=== PATIENT | male | born 1960 | race African-American/Black ===

== ENCOUNTER 2018-10-10 05:37 | Emergency (ER) | payer SELFPAY ==
[~2018-10-10] VITALS: Ht 170.2 cm; Wt 108.9 kg
[~2018-10-10 05:37] MED LIST: DIPH-530 PO; HYDR200T81 PO; QUET300T2 PO
[2018-10-10 06:32] LABS: BASOPHILS # (AUTO) 0.1 /CMM (0.0-0.2); BASOPHILS % (AUTO) 1.2 % (0.0-2.0); EOSINOPHILS % (AUTO) 0.5 % (0.0-6.0); HEMATOCRIT 39 % (39-51); HEMOGLOBIN 12.9 g/dL (13.5-17.5); LYMPHOCYTES # (AUTO) 1.3 /CMM (0.8-4.8); LYMPHOCYTES % (AUTO) 14.6 % (20.0-44.0); MEAN CORPUSCULAR HGB CONC 33 g/dl (31.0-36.0); MEAN CORPUSCULAR VOLUME 90 fL (80-96); MONOCYTES # (AUTO) 0.9 /CMM (0.1-1.30); NEUTROPHILS # (AUTO) 6.6 /CMM (1.8-8.9); NEUTROPHILS % (AUTO) 73.7 % (43.0-81.0); PLATELET COUNT (AUTO) 261 /CMM (150-450); RED BLOOD CELL COUNT(AUTO) 4.34 MIL/uL (4.5-6.0); WHITE BLOOD COUNT (AUTO) 8.9 K/uL (4.3-11.0)
[2018-10-10 06:42] LABS: CALCIUM, SERUM 9.8 mg/dL (8.5-10.1); CARBON DIOXIDE 32 mmol/L (21-32); CHLORIDE 102 mmol/L (98-107); CREATININE 1.3 mg/dL (0.6-1.3); GLUCOSE 126 mg/dL (74-106); POTASSIUM 3.4 mmol/L (3.5-5.1); SODIUM SERUM 143 mmol/L (136-145); UREA NITROGEN, BLOOD 22 mg/dL (7-18)
[2018-10-10 06:43] LABS: ALCOHOL, BLOOD < 3 mg/dL (0-0)
[2018-10-10 15:41] VITALS: BP 125/60
== END 2018-10-10 15:42 | disposition home or self-care (01) ==
LOC: ER 05:42
DX: F32.9 Major depressive disorder, single episode, unspecified (principal); R45.851 Suicidal ideations; G89.29 Other chronic pain; I10 Essential (primary) hypertension; F20.0 Paranoid schizophrenia; F17.200 Nicotine dependence, unspecified, uncomplicated; Z96.653 Presence of artificial knee joint, bilateral; Z60.2 Problems related to living alone
CPT/HCPCS: 36415; 80048-TC; 80305; 85025-TC; G0480

== ENCOUNTER 2020-03-26 10:10 | Emergency (ER) | payer OTHER ==
[~2020-03-26] VITALS: Ht 167.6 cm; Wt 111.1 kg
--- NOTE | 2020-03-26 10:31 | NUR ---
SECURITY AT BEDSIDE FOR WANDING. BELONGINGS PLACED IN LOCKER.
--- NOTE | 2020-03-26 11:25 | NUR ---
"I"M FEELING SUICIDAL" PLAN IS TO"INJECT MYSELF WITH HEROIN", ADMIT TO USING COCAINE AND MARIJUANA YESTERDAY. PT AAOX4, RR EVEN & UNLABORED. DENIES CP, SOB, DIZZINESS, N/V, WEAKNESS, FEVER AT THIS TIME. PLACED ON DRY WALL NAILER, SR. PT SEEN & EVAL'D BY DR. HADDAD. SITTER AT BS & WILL CONT TO MONITOR.
[2020-03-26 11:34] LABS: BASOPHILS # (AUTO) 0.1 /CMM (0.0-0.2); BASOPHILS % (AUTO) 0.8 % (0.0-2.0); EOSINOPHILS % (AUTO) 2.8 % (0.0-6.0); HEMATOCRIT 37 % (39-51); LYMPHOCYTES # (AUTO) 1.1 /CMM (0.8-4.8); LYMPHOCYTES % (AUTO) 16.8 % (20.0-44.0); MEAN CORPUSCULAR HGB CONC 33 g/dl (31.0-36.0); MEAN CORPUSCULAR VOLUME 88 fL (80-96); MONOCYTES # (AUTO) 0.7 /CMM (0.1-1.30); MONOCYTES % (AUTO) 9.8 % (2.0-12.0); NEUTROPHILS # (AUTO) 4.7 /CMM (1.8-8.9); NEUTROPHILS % (AUTO) 69.8 % (43.0-81.0); PLATELET COUNT (AUTO) 267 /CMM (150-450); RED BLOOD CELL COUNT(AUTO) 4.17 MIL/uL (4.5-6.0); WHITE BLOOD COUNT (AUTO) 6.8 K/uL (4.3-11.0)
[2020-03-26 11:40] LABS: APPEARANCE,URINE Clear (CLEAR); BILIRUBIN,URINE Negative (NEGATIVE); BLOOD, URINE Negative Ery/uL (NEGATIVE); COLOR,URINE Yellow (YELLOW); KETONES,URINE Negative (NEGATIVE); LEUKOCYTE ESTERASE ,URINE Negative (NEGATIVE); NITRITE, URINE Negative (NEGATIVE); PROTEIN,URINE 30 mg/dl (NEGATIVE); UGLUCOSE Negative (NEGATIVE)
[2020-03-26 11:41] LABS: BACTERIA,URINE None seen /HPF (None Seen); RBC,URINE 0-2 /HPF (0-2); WBC,URINE 0-2 /HPF (0-3)
[2020-03-26 11:41] LABS: CALCIUM, SERUM 9.2 mg/dL (8.5-10.1); CARBON DIOXIDE 31 mmol/L (21-32); CHLORIDE 103 mmol/L (98-107); CREATININE 1.2 mg/dL (0.6-1.3); GLUCOSE 94 mg/dL (74-106); POTASSIUM 3.9 mmol/L (3.5-5.1); SODIUM SERUM 140 mmol/L (136-145); UREA NITROGEN, BLOOD 21 mg/dL (7-18)
[2020-03-26 11:42] LABS: SQUAMOUS EPITHELIAL CELL,UR None Seen /HPF (None Seen)
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
[2020-03-26 11:47] LABS: ALANINE AMINOTRANSFERASE 42 U/L (12-78); ALBUMIN 3.7 g/dL (3.4-5.0); ALCOHOL, BLOOD < 3 mg/dL (0-0); ASPARTATE AMINOTRANSFERASE 33 U/L (15-37); BILIRUBIN,DIRECT 0.1 mg/dL (0.0-0.2); BILIRUBIN,TOTAL 0.5 mg/dL (0.2-1.0); SALICYLATE 2.9 mg/dL (2.8-20.0)
[2020-03-26 11:54] LABS: ALKALINE PHOSPHATASE 54 U/L (46-116); TOTAL PROTEIN, SERUM 7.8 g/dL (6.4-8.2)
--- NOTE | 2020-03-26 12:00 | NUR ---
OSIEL GLORIA AT FOR EVAL.
[2020-03-26 12:08] LABS: ACETAMINOPHEN 0 ug/ml (10-30)
--- NOTE | 2020-03-26 13:08 | NUR ---
Patient is resting comfortably in bed with eyes closed. Easily aroused. VSS
--- NOTE | 2020-03-26 14:22 | NUR ---
LESLIE NOTE: Cab Driver contacted Marge, ER Admitting, to follow up on the status of pt's medical coverage and/or the possibility of presumptive MediCal. Per Marge, system is down, and she is unable to access the MediCal website, or proceed with presumptive MediCal coverage for the pt. Marge referred LESLIE to Dali (ext. [phone]) for assistance in helping the pt apply for presumptive MediCal. LESLIE called Dali three times and left a voicemail; unable to reach her. LESLIE will reach out to Dali again and update pt's nurse.l
--- NOTE | 2020-03-26 14:55 | NUR ---
CALLED [facility] [phone] LEFT A MSG.
--- NOTE | 2020-03-26 14:55 | NUR ---
MEDICAL IS DOWN, THEY ARE WORKING ON IT.
--- NOTE | 2020-03-26 15:00 | NUR ---
Hospital Laboratory Technician informed STANISLAW Bay that the system is down for admitting, and they are currently unable to provide presumptive MediCal. Hospital Laboratory Technician asked STANISLAW Bay to proceed with calling crisis to further assess.
--- NOTE | 2020-03-26 15:45 | NUR ---
[facility] CALLED BACK "WILL BE HERE IN AN HOUR OR SO".
--- NOTE | 2020-03-26 20:32 | NUR ---
TRANSFER INFO: PT ACCEPTED AT [facility] ([address] [place] [address]), ROOM 302-A, ACCEPTING DR IS VAN. NUMBER FOR REPORT [phone].
--- NOTE | 2020-03-26 21:57 | NUR ---
S TRANSPORT SET-UP THRU [id number]. ETA [phone], VIA [facility]
--- NOTE | 2020-03-26 22:22 | NUR ---
REPORT GIVEN TO STANISLAW ESCOBAR FROM [facility]. REPORT GIVEN TO [facility] 722 FOR TRANSPORTATION YINKA
[2020-03-26] MEDS ORDERED: CLONIDINE HCL 0.1 MG TABLET ONE (22:29)
[2020-03-26] MEDS ORDERED: CLONIDINE HCL 0.1 MG TABLET PO ONE (22:30)
[2020-03-26 22:36] VITALS: BP 157/100
== END 2020-03-26 22:38 | disposition short-term general hospital (02) ==
LOC: ER 10:10
DX: F32.9 Major depressive disorder, single episode, unspecified (principal); R45.850 Homicidal ideations; I10 Essential (primary) hypertension; M32.9 Systemic lupus erythematosus, unspecified; F17.210 Nicotine dependence, cigarettes, uncomplicated; Z79.899 Other long term (current) drug therapy
CPT/HCPCS: 36415; 80048; 80076; 80305; 80307; 80329; 81001; 85025; 99285; G0480; 81000-TC

== ENCOUNTER 2020-05-11 20:02 | Emergency (ER) | payer OTHER ==
[~2020-05-11] VITALS: Ht 167.6 cm; Wt 108.9 kg
[2020-05-11] MEDS ORDERED: OLANZAPINE 5 MG TABLET PO ONE (20:30)
[2020-05-11] MEDS ORDERED: OLANZAPINE 5 MG TABLET ONE (20:35)
--- NOTE | 2020-05-11 20:36 | NUR ---
PATIENT CAME TO [facility] C/O SIPLANS TO TAKE FENTANYL. PATIENT IS AGITATED, STATES, "I HAVE BEEN ON MY FEET THE WHOLE DAY". PATIENT IS TAKEN TO BED 14, CHANGED INTO A GOWN. PERSONAL BELONGINGS REMOVED AND PLACED INTO A LOCKED LOCKER. PATIENT IS BREATHING EVENLY AND UNLABORED ON ROOM AIR. SITTER AT BEDSIDE.
--- NOTE | 2020-05-11 20:39 | NUR ---
PATIENT'S URINE COLLECTED AND SENT TO [facility].
--- NOTE | 2020-05-11 20:40 | NUR ---
CALLED NURSING SUP FOR LOTRIMIN, DRUG NOT AVAILABLE IN ER PYXIS
[2020-05-11 20:43] LABS: BASOPHILS # (AUTO) 0.1 /CMM (0.0-0.2); BASOPHILS % (AUTO) 0.6 % (0.0-2.0); EOSINOPHILS % (AUTO) 2.1 % (0.0-6.0); HEMATOCRIT 36 % (39-51); HEMOGLOBIN 11.7 g/dL (13.5-17.5); LYMPHOCYTES # (AUTO) 1.5 /CMM (0.8-4.8); LYMPHOCYTES % (AUTO) 18.9 % (20.0-44.0); MEAN CORPUSCULAR HGB CONC 33 g/dl (31.0-36.0); MEAN CORPUSCULAR VOLUME 89 fL (80-96); MONOCYTES % (AUTO) 12.6 % (2.0-12.0); NEUTROPHILS # (AUTO) 5.3 /CMM (1.8-8.9); NEUTROPHILS % (AUTO) 65.8 % (43.0-81.0); PLATELET COUNT (AUTO) 263 /CMM (150-450); RED BLOOD CELL COUNT(AUTO) 4.06 MIL/uL (4.5-6.0); WHITE BLOOD COUNT (AUTO) 8.1 K/uL (4.3-11.0)
[2020-05-11 20:54] LABS: APPEARANCE,URINE Clear (CLEAR); BILIRUBIN,URINE SMALL (NEGATIVE); BLOOD, URINE Negative Ery/uL (NEGATIVE); COLOR,URINE Yellow (YELLOW); KETONES,URINE Trace (NEGATIVE); LEUKOCYTE ESTERASE ,URINE Negative (NEGATIVE); NITRITE, URINE Negative (NEGATIVE); PH,URINE 5.5 (5.0-8.0); PROTEIN,URINE Trace mg/dl (NEGATIVE); UGLUCOSE Negative (NEGATIVE); UROBILINOGEN,URINE 0.2 EU/dL (0.2)
[2020-05-11 21:00] LABS: ALANINE AMINOTRANSFERASE 42 U/L (12-78); ALBUMIN 4.1 g/dL (3.4-5.0); ALCOHOL, BLOOD < 3 mg/dL (0-0); ALKALINE PHOSPHATASE 61 U/L (46-116); ASPARTATE AMINOTRANSFERASE 40 U/L (15-37); BILIRUBIN,DIRECT 0.2 mg/dL (0.0-0.2); BILIRUBIN,TOTAL 0.6 mg/dL (0.2-1.0); CALCIUM, SERUM 9.7 mg/dL (8.5-10.1); CARBON DIOXIDE 27 mmol/L (21-32); CHLORIDE 101 mmol/L (98-107); CREATININE 1.3 mg/dL (0.6-1.3); GLUCOSE 88 mg/dL (74-106); POTASSIUM 3.5 mmol/L (3.5-5.1); SALICYLATE 5.2 mg/dL (2.8-20.0); SODIUM SERUM 135 mmol/L (136-145); TOTAL PROTEIN, SERUM 8.5 g/dL (6.4-8.2); UREA NITROGEN, BLOOD 25 mg/dL (7-18)
[2020-05-11] MEDS ORDERED: CLOTRIMAZOLE 1% 15 GM TUBE TP SCH (21:00)
[2020-05-11 21:03] LABS: BACTERIA,URINE Few /HPF (None Seen); RBC,URINE 0-2 /HPF (0-2); SQUAMOUS EPITHELIAL CELL,UR Few /HPF (None Seen); WBC,URINE 0-2 /HPF (0-3)
[2020-05-11 21:04] LABS: ACETAMINOPHEN 0 ug/ml (10-30)
--- NOTE | 2020-05-11 22:18 | NUR ---
CLINICAL INFORMATION FAXED TO [facility]
--- NOTE | 2020-05-11 23:08 | NUR ---
PER SHAUNA FROM [facility], COVID TEST REQUIRED FOR PLACEMENT D/T PREVIOUS POSITIVE COVID RESULTS
--- NOTE | 2020-05-11 23:15 | NUR ---
Rylan greene in [facility] - 05/11/20 at 2316 by JENNIFER PER [facility], COVID TEST REQUIRED FOR PLACEMENT. AWARE
--- NOTE | 2020-05-11 23:27 | NUR ---
PT RESTING COMFORTABLY IN BED. VSS. NO ACUTE DISTRESS NOTED. SITTER AT BEDSIDE FOR SAFETY
--- NOTE | 2020-05-12 00:38 | NUR ---
TRANSFER INFORMATION: [facility]ED TO [facility] ACCEPTING MD: DR. GONSALVES/DR. MAYES NUMBER FOR REPORT: [phone] UNIT 2
--- NOTE | 2020-05-12 00:40 | NUR ---
CALLED CALL THE CAR FOR TRANSPORTATION. RESERVATION #[id number]. WILL CALL BACK WITH FELI
--- NOTE | 2020-05-12 00:44 | NUR ---
[facility] ETA 30MIN
--- NOTE | 2020-05-12 00:58 | NUR ---
REPORT GIVEN TO STANISLAW BYRNE FROM [facility] FOR [facility]
--- NOTE | 2020-05-12 01:06 | NUR ---
REPORT GIVEN TO EMS. PT STABLE FOR TRANSFER.
[2020-05-12 01:12] VITALS: BP 127/74
--- NOTE | 2020-05-12 01:13 | NUR ---
PT TRANSFERRED TO [facility] IN STABLE CONDITION
== END 2020-05-12 01:16 ==
LOC: ER 20:02
DX: R45.851 Suicidal ideations (principal); F14.10 Cocaine abuse, uncomplicated; B35.3 Tinea pedis; B35.1 Tinea unguium; E66.9 Obesity, unspecified; Z68.38 Body mass index [BMI] 38.0-38.9, adult; Z59.0 Homelessness; I10 Essential (primary) hypertension; Z79.01 Long term (current) use of anticoagulants; D64.9 Anemia, unspecified; F12.90 Cannabis use, unspecified, uncomplicated; Z86.19 Personal history of other infectious and parasitic diseases; M25.562 Pain in left knee; M25.561 Pain in right knee; M32.9 Systemic lupus erythematosus, unspecified; F17.210 Nicotine dependence, cigarettes, uncomplicated
CPT/HCPCS: 36415; 80048; 80076; 80305; 80307; 80329; 81001; 85025; 87426; 99285; 99406; G0480; 81000-TC

== ENCOUNTER 2020-05-25 08:27 | Emergency (ER) | payer OTHER ==
[~2020-05-25] VITALS: Ht 167.6 cm; Wt 90.7 kg
--- NOTE | 2020-05-25 08:27 | NUR ---
PT BIB SELF C/O SI "I WANT TO JUMP IN FRONT OF THE TRAIN" PT IS AAOX4, NOT IN RESPIRATORY DISTRESS, V/S STABLE, KEPT RESTED AND COMFORTABLE. WILL CONTINUE TO MONITOR.
--- NOTE | 2020-05-25 08:36 | NUR ---
URINE SPECIMEN COLLECTED AND SENT TO LAB.
--- NOTE | 2020-05-25 08:37 | NUR ---
CALLED SECURITY FOR WANDING.
--- NOTE | 2020-05-25 08:38 | NUR ---
SEEN AND EXAMINED BY .
--- NOTE | 2020-05-25 08:46 | NUR ---
FOOD TRAY PROVIDED.
[2020-05-25 09:05] LABS: BASOPHILS % (AUTO) 0.6 % (0.0-2.0); HEMATOCRIT 36 % (39-51); HEMOGLOBIN 11.6 g/dL (13.5-17.5); LYMPHOCYTES # (AUTO) 1.3 /CMM (0.8-4.8); LYMPHOCYTES % (AUTO) 16.4 % (20.0-44.0); MEAN CORPUSCULAR HGB CONC 33 g/dl (31.0-36.0); MEAN CORPUSCULAR VOLUME 89 fL (80-96); MONOCYTES # (AUTO) 0.8 /CMM (0.1-1.30); MONOCYTES % (AUTO) 9.5 % (2.0-12.0); NEUTROPHILS # (AUTO) 5.8 /CMM (1.8-8.9); NEUTROPHILS % (AUTO) 71.5 % (43.0-81.0); PLATELET COUNT (AUTO) 264 /CMM (150-450); RED BLOOD CELL COUNT(AUTO) 3.99 MIL/uL (4.5-6.0); WHITE BLOOD COUNT (AUTO) 8.1 K/uL (4.3-11.0)
[2020-05-25 09:08] LABS: APPEARANCE,URINE CLEAR (CLEAR); BILIRUBIN,URINE NEGATIVE (NEGATIVE); BLOOD, URINE NEGATIVE Ery/uL (NEGATIVE); COLOR,URINE YELLOW (YELLOW); KETONES,URINE NEGATIVE (NEGATIVE); LEUKOCYTE ESTERASE ,URINE NEGATIVE (NEGATIVE); NITRITE, URINE NEGATIVE (NEGATIVE); PROTEIN,URINE TRACE mg/dl (NEGATIVE); UGLUCOSE NEGATIVE (NEGATIVE)
[2020-05-25 09:18] LABS: CALCIUM, SERUM 8.5 mg/dL (8.5-10.1); CARBON DIOXIDE 26 mmol/L (21-32); CHLORIDE 102 mmol/L (98-107); CREATININE 1.2 mg/dL (0.6-1.3); GLUCOSE 95 mg/dL (74-106); POTASSIUM 3.5 mmol/L (3.5-5.1); SODIUM SERUM 135 mmol/L (136-145); UREA NITROGEN, BLOOD 18 mg/dL (7-18)
[2020-05-25 09:18] LABS: BACTERIA,URINE Rare /HPF (None Seen); RBC,URINE 0-2 /HPF (0-2); SQUAMOUS EPITHELIAL CELL,UR Rare /HPF (None Seen); WBC,URINE 0-2 /HPF (0-3)
[2020-05-25 09:23] LABS: ALANINE AMINOTRANSFERASE 30 U/L (12-78); ALBUMIN 3.6 g/dL (3.4-5.0); ALCOHOL, BLOOD < 3 mg/dL (0-0); ALKALINE PHOSPHATASE 64 U/L (46-116); ASPARTATE AMINOTRANSFERASE 29 U/L (15-37); BILIRUBIN,DIRECT 0.2 mg/dL (0.0-0.2); BILIRUBIN,TOTAL 0.7 mg/dL (0.2-1.0); SALICYLATE 4.4 mg/dL (2.8-20.0); TOTAL PROTEIN, SERUM 9.9 g/dL (6.4-8.2)
[2020-05-25 09:24] LABS: ACETAMINOPHEN < 2 ug/ml (10-30)
--- NOTE | 2020-05-25 10:40 | NUR ---
CALLED [facility] [phone] STILL NO BEDS. PLEASE CHECK BACK AFTER 2352
--- NOTE | 2020-05-25 12:53 | NUR ---
SPOKED TO [facility]. CLINICALS AND FACE SHEET RECEIVED.
--- NOTE | 2020-05-25 14:45 | NUR ---
PT ASLEEP ON BED EASILY AROUSABLE, NOT IN RESPIRATORY DISTRESS, V/S STABLE, KEPT RESTED AND COMFORTABLE. AWAITING BEDS FROM [facility].
--- NOTE | 2020-05-25 16:05 | NUR ---
SPOKED TO ANAYA OF [facility]. STILL NO BEDS AVAILABLE. WILL CALL BACK FOR UPDATE.
--- NOTE | 2020-05-25 17:16 | NUR ---
PT IS ACCEPTED AT [facility] BY . ROOM # 211-C # FOR REPORT: [phone] EXT [phone]
--- NOTE | 2020-05-25 17:22 | NUR ---
CALLED [id number] [phone] OPTION 2 WILL CALL US BACK WHEN TRANSPORT HAS BEEN ARRANGED REF # [id number]
--- NOTE | 2020-05-25 17:22 | NUR ---
REPORT GIVEN TO ST[facility]ISLAW BLISS OF [facility] FOR [facility].
--- NOTE | 2020-05-25 18:48 | NUR ---
REPORT GIVEN TO REFRIGERATION ENGINE OPERATOR, PATIENT A/OX4, AMBULATORY, NO DISTRESS NOTED. BELONGINGS GIVEN BACK TO PATIENT.
--- NOTE | 2020-05-25 18:50 | NUR ---
PATIENT TRANSFERRED TO [facility]. IN NO DISTRESS NOTED.
[2020-05-25 18:51] VITALS: BP 136/77
== END 2020-05-25 18:52 ==
LOC: ER 08:33
DX: R45.851 Suicidal ideations (principal); F17.210 Nicotine dependence, cigarettes, uncomplicated; I10 Essential (primary) hypertension; Z60.2 Problems related to living alone; Z79.899 Other long term (current) drug therapy
CPT/HCPCS: 36415; 80048; 80076; 80305; 80307; 80329; 81001; 85025; 99285; G0480; 81000-TC

== ENCOUNTER 2020-06-08 09:32 | Emergency (ER) | payer OTHER ==
[~2020-06-08] VITALS: Ht 167.6 cm; Wt 97.1 kg
--- NOTE | 2020-06-08 09:41 | NUR ---
CALLED IN ED WAITING ROOM. NO RESPONSE.
--- NOTE | 2020-06-08 09:59 | NUR ---
Patient awake alert follows command @ this time non distress security called for belongings and safety siiter @ bedside
--- NOTE | 2020-06-08 10:27 | NUR ---
Urine send for tox .
[2020-06-08 10:55] LABS: APPEARANCE,URINE CLEAR (CLEAR); BILIRUBIN,URINE NEGATIVE (NEGATIVE); BLOOD, URINE LARGE Ery/uL (NEGATIVE); COLOR,URINE YELLOW (YELLOW); KETONES,URINE NEGATIVE (NEGATIVE); LEUKOCYTE ESTERASE ,URINE NEGATIVE (NEGATIVE); NITRITE, URINE NEGATIVE (NEGATIVE); PROTEIN,URINE TRACE mg/dl (NEGATIVE); UGLUCOSE NEGATIVE (NEGATIVE); UROBILINOGEN,URINE 0.2 EU/dL (0.2)
[2020-06-08 10:55] LABS: BASOPHILS % (AUTO) 0.3 % (0.0-2.0); EOSINOPHILS % (AUTO) 0.8 % (0.0-6.0); HEMATOCRIT 35 % (39-51); HEMOGLOBIN 11.3 g/dL (13.5-17.5); LYMPHOCYTES # (AUTO) 1.3 /CMM (0.8-4.8); LYMPHOCYTES % (AUTO) 16.7 % (20.0-44.0); MEAN CORPUSCULAR HGB CONC 32 g/dl (31.0-36.0); MEAN CORPUSCULAR VOLUME 89 fL (80-96); MONOCYTES # (AUTO) 0.9 /CMM (0.1-1.30); MONOCYTES % (AUTO) 11.4 % (2.0-12.0); NEUTROPHILS # (AUTO) 5.5 /CMM (1.8-8.9); NEUTROPHILS % (AUTO) 70.8 % (43.0-81.0); PLATELET COUNT (AUTO) 271 /CMM (150-450); RED BLOOD CELL COUNT(AUTO) 3.93 MIL/uL (4.5-6.0); WHITE BLOOD COUNT (AUTO) 7.8 K/uL (4.3-11.0)
[2020-06-08 11:14] LABS: CALCIUM, SERUM 8.3 mg/dL (8.5-10.1); CARBON DIOXIDE 27 mmol/L (21-32); CHLORIDE 101 mmol/L (98-107); CREATININE 1.3 mg/dL (0.6-1.3); GLUCOSE 78 mg/dL (74-106); POTASSIUM 3.5 mmol/L (3.5-5.1); SODIUM SERUM 136 mmol/L (136-145); UREA NITROGEN, BLOOD 17 mg/dL (7-18)
[2020-06-08 11:20] LABS: ALANINE AMINOTRANSFERASE 34 U/L (12-78); ALBUMIN 3.6 g/dL (3.4-5.0); ALCOHOL, BLOOD < 3 mg/dL (0-0); ALKALINE PHOSPHATASE 58 U/L (46-116); ASPARTATE AMINOTRANSFERASE 26 U/L (15-37); BILIRUBIN,DIRECT 0.2 mg/dL (0.0-0.2); BILIRUBIN,TOTAL 0.5 mg/dL (0.2-1.0); SALICYLATE 4.2 mg/dL (2.8-20.0); TOTAL PROTEIN, SERUM 7.8 g/dL (6.4-8.2)
[2020-06-08 11:23] LABS: ACETAMINOPHEN < 2 ug/ml (10-30)
[2020-06-08 12:15] LABS: RBC,URINE 51-80 /HPF (0-2)
[2020-06-08 12:16] LABS: BACTERIA,URINE Many /HPF (None Seen); SQUAMOUS EPITHELIAL CELL,UR Few /HPF (None Seen)
--- NOTE | 2020-06-08 12:55 | NUR ---
Patient asleep but arousable non distress remain calm he follows command ,no agitation check room for safety ,safety tray
--- NOTE | 2020-06-08 13:45 | NUR ---
facesheet and clinicals faxed to intake toin
--- NOTE | 2020-06-08 15:27 | NUR ---
facesheet and clinicals faxed to [facility].
--- NOTE | 2020-06-08 15:45 | NUR ---
pt sleeping in bed. easily arousable. on monitor w/ stable vitals. sitter at bedside.
--- NOTE | 2020-06-08 16:10 | NUR ---
provided w meal tray.
--- NOTE | 2020-06-08 17:34 | NUR ---
follow up w/ [facility]. spoke w/ lisa. no beds available at this time.
--- NOTE | 2020-06-08 20:09 | NUR ---
SPOKE WITH KALLI FROM [facility], NO BEDS AVAILABLE AT THIS TIME
--- NOTE | 2020-06-09 01:25 | NUR ---
SPOKE WITH CJ FROM [facility], STILL NO BEDS AVAILABALE AT THIS TIME.
--- NOTE | 2020-06-09 02:15 | NUR ---
spoke to [facility] intake, requesting a covid swab prior to admission regardless pt has no symptoms for covid.
--- NOTE | 2020-06-09 02:25 | NUR ---
COVID SWAB COLLECTED AND SENT TO THE LAB.
--- NOTE | 2020-06-09 02:47 | NUR ---
covid test result: negative
--- NOTE | 2020-06-09 03:49 | NUR ---
TRANSFER INFORMATION: PT ACCEPTED TO [facility] ACCEPTING MD: DR. GONSALVES NUMBER FOR REPORT: [phone] EXT [phone]
--- NOTE | 2020-06-09 03:50 | NUR ---
CALLED CALL THE CAR FOR TRANSPORTATION,WILL CALL BACK WITH ETA. RESERVATION NUMBER:[id number]
--- NOTE | 2020-06-09 04:20 | NUR ---
pt resting at this time. no acute distress noted.
--- NOTE | 2020-06-09 04:58 | NUR ---
CALLED CALL THE CAR, STILL NO ETA FOR AN AMBULANCE AT THIS TIME
--- NOTE | 2020-06-09 05:07 | NUR ---
REC'D A CALL FROM ALL AT CALL THE CAR WITH ETA 0600 TO 0630 WITH [facility] TO [facility]
--- NOTE | 2020-06-09 05:13 | NUR ---
[facility] ETA 30 MINUTES
--- NOTE | 2020-06-09 05:22 | NUR ---
NOTED HYPERTENSION. MD AWARE. PT STATES HE TAKES LISINIPRIL 10MG, PER VERBAL MD ORDER WILL MEDICATE PATIENT
[2020-06-09] MEDS ORDERED: LISINOPRIL (10MG) 10 MG TABLET ONE (05:27)
[2020-06-09 05:31] VITALS: BP 161/92
--- NOTE | 2020-06-09 06:08 | NUR ---
REPORT GIVEN TO [facility] AND TO STANISLAW TITUS FROM [facility] FOR [facility]. PT TRANSFERRED TO [facility] IN STABLE CONDITION
[2020-06-09] MEDS ORDERED: LISINOPRIL (10MG) 10 MG TABLET PO SCH (09:00)
== END 2020-06-09 06:14 ==
LOC: ER 09:36
DX: F32.9 Major depressive disorder, single episode, unspecified (principal); F19.10 Other psychoactive substance abuse, uncomplicated; R45.851 Suicidal ideations; F17.210 Nicotine dependence, cigarettes, uncomplicated; M32.9 Systemic lupus erythematosus, unspecified; G89.29 Other chronic pain; M25.562 Pain in left knee; M25.561 Pain in right knee; I10 Essential (primary) hypertension; Z20.828 Contact with and (suspected) exposure to other viral communicable diseases
CPT/HCPCS: 36415; 80048; 80076; 80305; 80307; 80329; 81001; 85025; 87086; 87426; 99285; C9803; G0480; 81000-TC

== ENCOUNTER 2020-07-13 10:28 | Emergency (ER) | payer OTHER ==
[~2020-07-13] VITALS: Ht 167.6 cm; Wt 90.7 kg
--- NOTE | 2020-07-13 10:28 | NUR ---
PT BIB SELF C/O SI "I WANT TO OD ON PILLS" PT IS AAOX4, NOT IN RESPIRATORY DISTRESS, V/S STABLE, KEPT RESTED AND COMFORTABLE. WILL CONTINUE TO MONITOR.
--- NOTE | 2020-07-13 10:50 | NUR ---
URINE SPECIMEN COLLECTED AND SENT TO LAB.
--- NOTE | 2020-07-13 10:54 | NUR ---
SEEN AND EXAMINED BY .
--- NOTE | 2020-07-13 11:12 | NUR ---
ER PHLEB AT BEDSIDE FOR BLOOD DRAW
[2020-07-13 11:21] LABS: BASOPHILS % (AUTO) 0.5 % (0.0-2.0); EOSINOPHILS % (AUTO) 1.5 % (0.0-6.0); HEMATOCRIT 41 % (39-51); HEMOGLOBIN 13.4 g/dL (13.5-17.5); LYMPHOCYTES # (AUTO) 1.1 /CMM (0.8-4.8); LYMPHOCYTES % (AUTO) 15.7 % (20.0-44.0); MEAN CORPUSCULAR HGB CONC 33 g/dl (31.0-36.0); MEAN CORPUSCULAR VOLUME 89 fL (80-96); NEUTROPHILS # (AUTO) 4.9 /CMM (1.8-8.9); NEUTROPHILS % (AUTO) 68.3 % (43.0-81.0); PLATELET COUNT (AUTO) 245 /CMM (150-450); RED BLOOD CELL COUNT(AUTO) 4.55 MIL/uL (4.5-6.0); WHITE BLOOD COUNT (AUTO) 7.1 K/uL (4.3-11.0)
[2020-07-13 11:23] LABS: APPEARANCE,URINE Clear (CLEAR); BILIRUBIN,URINE SMALL (NEGATIVE); BLOOD, URINE Trace-intact Ery/uL (NEGATIVE); COLOR,URINE Yellow (YELLOW); KETONES,URINE Negative (NEGATIVE); LEUKOCYTE ESTERASE ,URINE Negative (NEGATIVE); NITRITE, URINE Negative (NEGATIVE); PH,URINE 5.5 (5.0-8.0); PROTEIN,URINE 30 mg/dl (NEGATIVE); UGLUCOSE Negative (NEGATIVE); UROBILINOGEN,URINE 0.2 EU/dL (0.2)
[2020-07-13 11:26] LABS: BACTERIA,URINE Rare /HPF (None Seen); RBC,URINE 0-2 /HPF (0-2); SQUAMOUS EPITHELIAL CELL,UR Few /HPF (None Seen); WBC,URINE 0-2 /HPF (0-3)
[2020-07-13 11:29] LABS: CALCIUM, SERUM 9.3 mg/dL (8.5-10.1); CARBON DIOXIDE 26 mmol/L (21-32); CHLORIDE 99 mmol/L (98-107); CREATININE 2.6 mg/dL (0.6-1.3); GLUCOSE 87 mg/dL (74-106); POTASSIUM 4.1 mmol/L (3.5-5.1); SODIUM SERUM 134 mmol/L (136-145); UREA NITROGEN, BLOOD 41 mg/dL (7-18)
[2020-07-13 11:39] LABS: ALANINE AMINOTRANSFERASE 33 U/L (12-78); ALKALINE PHOSPHATASE 65 U/L (46-116); ASPARTATE AMINOTRANSFERASE 46 U/L (15-37); BILIRUBIN,DIRECT 0.2 mg/dL (0.0-0.2); BILIRUBIN,TOTAL 0.6 mg/dL (0.2-1.0); SALICYLATE 4.6 mg/dL (2.8-20.0); TOTAL PROTEIN, SERUM 9.1 g/dL (6.4-8.2)
[2020-07-13 11:51] LABS: ACETAMINOPHEN 0 ug/ml (10-30); ALCOHOL, BLOOD < 3 mg/dL (0-0)
--- NOTE | 2020-07-13 13:25 | NUR ---
COVID SPECIMEN OBTAINED AND SENT TO LAB.
--- NOTE | 2020-07-13 19:10 | NUR ---
ASSUMED CARE FOR THIS PATIENT.
--- NOTE | 2020-07-13 19:20 | NUR ---
PT SEEN WANDERING AROUND. PT REORIENTED TO ROOM.
--- NOTE | 2020-07-13 19:40 | NUR ---
PT PROVIDED W/ FOOD AND BEVERAGE
[2020-07-13 23:07] VITALS: BP 131/82
--- NOTE | 2020-07-14 00:03 | NUR ---
PT ACCEPTED TO [facility] BY DR GONSALVES. ROOM P6. # FOR REPORT [phone]
--- NOTE | 2020-07-14 00:10 | NUR ---
MARIS[facility] CALL THE CAR CALLED FOR TRANSPORT. #[phone]. PENDING ETA
--- NOTE | 2020-07-14 00:33 | NUR ---
[facility] ETA 1 HR.
--- NOTE | 2020-07-14 01:34 | NUR ---
REPORT GIVEN TO TRANSPORT TEAM FOR [facility]A. AND TRANSFERRING RESPONSIBILTIES.
--- NOTE | 2020-07-14 01:36 | NUR ---
REPORT GIVEN TO STANISLAW [facility] FOR [facility]
== END 2020-07-14 01:52 ==
LOC: ER 10:32
DX: R45.851 Suicidal ideations (principal); F20.0 Paranoid schizophrenia; M32.9 Systemic lupus erythematosus, unspecified; F17.210 Nicotine dependence, cigarettes, uncomplicated; F19.10 Other psychoactive substance abuse, uncomplicated; Z20.828 Contact with and (suspected) exposure to other viral communicable diseases
CPT/HCPCS: 36415; 80048; 80076; 80305; 80307; 80329; 81001; 85025; 87426; 99285; C9803; G0480; 81000-TC

== ENCOUNTER 2020-08-08 03:15 | Emergency (ER) | payer OTHER ==
[~2020-08-08] VITALS: Ht 167.6 cm; Wt 108.9 kg
[2020-08-08] MEDS ORDERED: CLONIDINE HCL 0.1 MG TABLET PO ONE (04:00)
--- NOTE | 2020-08-08 04:01 | NUR ---
BIBSELF C/O SUICIDAL IDEATION WITH PLAN TO OVERDOSE ON FENTANYL. PT PLACED IN BED 12 ON MONITOR AND PULSE OX. PT PLACED IN GOWN, BELONGINGS IN LOCKER. SITTER AT BEDSIDE.
[2020-08-08] MEDS ORDERED: CLONIDINE HCL 0.1 MG TABLET ONE (04:04)
--- NOTE | 2020-08-08 04:09 | NUR ---
TUTORING ASSISTANT AT BEDSIDE
[2020-08-08 04:15] LABS: BASOPHILS % (AUTO) 0.2 % (0.0-2.0); EOSINOPHILS % (AUTO) 2.1 % (0.0-6.0); HEMATOCRIT 37 % (39-51); LYMPHOCYTES # (AUTO) 1.1 /CMM (0.8-4.8); MEAN CORPUSCULAR HGB CONC 33 g/dl (31.0-36.0); MEAN CORPUSCULAR VOLUME 89 fL (80-96); MONOCYTES # (AUTO) 0.5 /CMM (0.1-1.30); MONOCYTES % (AUTO) 8.8 % (2.0-12.0); NEUTROPHILS # (AUTO) 4.3 /CMM (1.8-8.9); NEUTROPHILS % (AUTO) 70.9 % (43.0-81.0); PLATELET COUNT (AUTO) 255 /CMM (150-450); RED BLOOD CELL COUNT(AUTO) 4.17 MIL/uL (4.5-6.0)
--- NOTE | 2020-08-08 04:18 | NUR ---
URINE COLLECTED AND SENT TO LAB
[2020-08-08 04:22] LABS: CALCIUM, SERUM 9.4 mg/dL (8.5-10.1); CARBON DIOXIDE 33 mmol/L (21-32); CHLORIDE 102 mmol/L (98-107); CREATININE 1.1 mg/dL (0.6-1.3); GLUCOSE 95 mg/dL (74-106); POTASSIUM 3.4 mmol/L (3.5-5.1); SODIUM SERUM 141 mmol/L (136-145); UREA NITROGEN, BLOOD 11 mg/dL (7-18)
[2020-08-08 04:22] LABS: APPEARANCE,URINE Clear (CLEAR); BILIRUBIN,URINE Negative (NEGATIVE); BLOOD, URINE Negative Ery/uL (NEGATIVE); COLOR,URINE Yellow (YELLOW); LEUKOCYTE ESTERASE ,URINE Negative (NEGATIVE); NITRITE, URINE Negative (NEGATIVE); PH,URINE 6.5 (5.0-8.0); PROTEIN,URINE 30 mg/dl (NEGATIVE); UGLUCOSE Negative (NEGATIVE)
[2020-08-08 04:28] LABS: ALANINE AMINOTRANSFERASE 20 U/L (12-78); ALBUMIN 3.6 g/dL (3.4-5.0); ALCOHOL, BLOOD < 3 mg/dL (0-0); ALKALINE PHOSPHATASE 68 U/L (46-116); ASPARTATE AMINOTRANSFERASE 19 U/L (15-37); BILIRUBIN,DIRECT 0.1 mg/dL (0.0-0.2); BILIRUBIN,TOTAL 0.4 mg/dL (0.2-1.0); TOTAL PROTEIN, SERUM 8.1 g/dL (6.4-8.2)
[2020-08-08 04:29] LABS: ACETAMINOPHEN < 2 ug/ml (10-30)
[2020-08-08 04:46] LABS: RBC,URINE 0-2 /HPF (0-2)
[2020-08-08 04:47] LABS: BACTERIA,URINE Many /HPF (None Seen); SQUAMOUS EPITHELIAL CELL,UR Few /HPF (None Seen)
--- NOTE | 2020-08-08 05:02 | NUR ---
COVID SWABBED, SENT TO LAB
--- NOTE | 2020-08-08 05:27 | NUR ---
Call from lab. Rapid covid negative.
--- NOTE | 2020-08-08 06:49 | NUR ---
Facesheet and clinicals faxed to [facility].
--- NOTE | 2020-08-08 08:18 | NUR ---
ACCEPTED AT [facility] UNDER DR GONSALVES REPORT CALLED TO [facility]. AWAITING TRANSPORT.
--- NOTE | 2020-08-08 08:44 | NUR ---
[facility]2 MARCUS EDMOND WILL INFORM US RESERVATION #[id number]
--- NOTE | 2020-08-08 10:16 | NUR ---
TRANSFERRED TO [facility] IN STABLE CONDITION.
[2020-08-08 10:18] VITALS: BP 135/87
== END 2020-08-08 10:20 ==
LOC: ER 03:15
DX: R45.851 Suicidal ideations (principal); F20.0 Paranoid schizophrenia; Z91.14 Patient's other noncompliance with medication regimen; I10 Essential (primary) hypertension; M32.9 Systemic lupus erythematosus, unspecified; F17.210 Nicotine dependence, cigarettes, uncomplicated; F19.10 Other psychoactive substance abuse, uncomplicated; G89.29 Other chronic pain; M25.562 Pain in left knee; M25.561 Pain in right knee
CPT/HCPCS: 36415; 80048; 80076; 80299; 80307; 80320; 81001; 85025; 87077; 87086; 87186; 87426; 99285; C9803; 81000-TC; G0480

== ENCOUNTER 2020-10-04 19:29 | Emergency (ER) | payer OTHER ==
[~2020-10-04] VITALS: Ht 167.6 cm; Wt 90.7 kg
--- NOTE | 2020-10-04 19:46 | NUR ---
PT AAOX4. AMBULATORY WITH STEADY GAIT. BIBSELF C/O SI WITH PLAN TO JUMP IN FRONT OF A MOVING TRAIN. DENIES HI. REQUESTING VOLUNTARY ADMISSION TO [facility].
--- NOTE | 2020-10-04 20:10 | NUR ---
URINE COLLECTED, SENT TO LAB.
--- NOTE | 2020-10-04 20:30 | NUR ---
KANDISID SWABBED, SENT TO LAB.
--- NOTE | 2020-10-04 20:48 | NUR ---
MEAT AND SEAFOOD CLERK AT BEDSIDE FOR LABS.
[2020-10-04 21:32] LABS: BASOPHILS % (AUTO) 0.4 % (0.0-2.0); HEMATOCRIT 34 % (39-51); LYMPHOCYTES # (AUTO) 1.6 /CMM (0.8-4.8); LYMPHOCYTES % (AUTO) 26.1 % (20.0-44.0); MEAN CORPUSCULAR HGB CONC 33 g/dl (31.0-36.0); MEAN CORPUSCULAR VOLUME 88 fL (80-96); MONOCYTES # (AUTO) 0.8 /CMM (0.1-1.30); MONOCYTES % (AUTO) 12.1 % (2.0-12.0); NEUTROPHILS # (AUTO) 3.6 /CMM (1.8-8.9); NEUTROPHILS % (AUTO) 58.4 % (43.0-81.0); PLATELET COUNT (AUTO) 224 /CMM (150-450); RED BLOOD CELL COUNT(AUTO) 3.79 MIL/uL (4.5-6.0); WHITE BLOOD COUNT (AUTO) 6.2 K/uL (4.3-11.0)
[2020-10-04 21:37] LABS: BILIRUBIN,URINE NEGATIVE (NEGATIVE); COLOR,URINE YELLOW (YELLOW); LEUKOCYTE ESTERASE ,URINE NEGATIVE (NEGATIVE); NITRITE, URINE NEGATIVE (NEGATIVE); PROTEIN,URINE NEGATIVE (NEGATIVE); UGLUCOSE NEGATIVE (NEGATIVE)
[2020-10-04 21:48] LABS: BACTERIA,URINE None seen /HPF (None Seen); RBC,URINE 0-2 /HPF (0-2); WBC,URINE 0-2 /HPF (0-3)
[2020-10-04 21:49] LABS: CALCIUM, SERUM 9.1 mg/dL (8.5-10.1); CARBON DIOXIDE 31 mmol/L (21-32); CHLORIDE 103 mmol/L (98-107); CREATININE 1.3 mg/dL (0.6-1.3); GLUCOSE 97 mg/dL (74-106); POTASSIUM 3.7 mmol/L (3.5-5.1); SODIUM SERUM 140 mmol/L (136-145); UREA NITROGEN, BLOOD 20 mg/dL (7-18)
[2020-10-04 21:58] LABS: ALANINE AMINOTRANSFERASE 27 U/L (12-78); ALBUMIN 3.5 g/dL (3.4-5.0); ALCOHOL, BLOOD < 3 mg/dL (0-0); ALKALINE PHOSPHATASE 66 U/L (46-116); ASPARTATE AMINOTRANSFERASE 19 U/L (15-37); BILIRUBIN,DIRECT 0.1 mg/dL (0.0-0.2); BILIRUBIN,TOTAL 0.2 mg/dL (0.2-1.0); TOTAL PROTEIN, SERUM 7.4 g/dL (6.4-8.2)
[2020-10-04 22:00] LABS: ACETAMINOPHEN 0 ug/ml (10-30)
--- NOTE | 2020-10-04 22:17 | NUR ---
COVID NEGATIVE PER LAB
--- NOTE | 2020-10-04 22:32 | NUR ---
FACESHEET AND CLINICALS FAXED TO [facility].
--- NOTE | 2020-10-05 02:20 | NUR ---
TRANSFER INFORMATION: PT ACCEPTED TO [facility] ACCEPTING MD: DR. UK BED ASSIGNMENT: 315A
--- NOTE | 2020-10-05 02:28 | NUR ---
REPORT GIVEN TO STANISLAW KWONG FROM [facility] FOR [facility]
--- NOTE | 2020-10-05 03:12 | NUR ---
ATTEMPTED TO CONTACT [facility] CALL THE CAR FOR TRANSPORTATION. ON HOLD FOR 45+ MINUTES, PER RUBY FROM [facility], ALL AMBULANCE CALLS OVER SATURATED. NO AVAILABLE AMBULANCE AT THIS TIME.
--- NOTE | 2020-10-05 03:17 | NUR ---
CALLED [facility] FOR TRANSPORTATION. ETA 1130, DID NOT SET UP TRANSPORTATION AT THIS TIME
--- NOTE | 2020-10-05 03:20 | NUR ---
CALLED [facility]. ETA 08
--- NOTE | 2020-10-05 07:14 | NUR ---
REPORT GIVEN TO AM SHIFT STANISLAW WHALEN.
[2020-10-05 08:47] VITALS: BP 121/65
--- NOTE | 2020-10-05 08:48 | NUR ---
private ambulance came and picked up the patient going to [facility] in no distress.
== END 2020-10-05 08:47 ==
LOC: ER 19:39
DX: F32.9 Major depressive disorder, single episode, unspecified (principal); R45.851 Suicidal ideations; Z20.828 Contact with and (suspected) exposure to other viral communicable diseases; F17.210 Nicotine dependence, cigarettes, uncomplicated; F14.90 Cocaine use, unspecified, uncomplicated; F20.0 Paranoid schizophrenia; I10 Essential (primary) hypertension; M32.9 Systemic lupus erythematosus, unspecified; G89.29 Other chronic pain; M25.562 Pain in left knee; M25.561 Pain in right knee; Z79.899 Other long term (current) drug therapy
CPT/HCPCS: 36415; 80048; 80076; 80299; 80307; 80320; 81001; 85025; 87426; 99285; C9803; G0480

== ENCOUNTER 2020-11-24 19:11 | Emergency (ER) | payer OTHER ==
[~2020-11-24] VITALS: Ht 167.6 cm; Wt 81.6 kg
--- NOTE | 2020-11-24 20:08 | NUR ---
CALLED LAB FOR COVID SWAB
--- NOTE | 2020-11-24 20:09 | NUR ---
URINE COLLECTED, SENT TO LAB.
[2020-11-24 20:18] LABS: BILIRUBIN,URINE Negative (NEGATIVE); COLOR,URINE YELLOW (YELLOW); LEUKOCYTE ESTERASE ,URINE Negative (NEGATIVE); NITRITE, URINE Negative (NEGATIVE); PROTEIN,URINE 30 mg/dl (NEGATIVE); UGLUCOSE Negative (NEGATIVE)
[2020-11-24 20:19] LABS: BACTERIA,URINE Rare /HPF (None Seen); RBC,URINE NONE SEEN /HPF (0-2); SQUAMOUS EPITHELIAL CELL,UR Few /HPF (None Seen); WBC,URINE NONE SEEN /HPF (0-3)
[2020-11-24 20:28] LABS: BASOPHILS % (AUTO) 0.5 % (0.0-2.0); EOSINOPHILS % (AUTO) 2.3 % (0.0-6.0); HEMATOCRIT 35 % (39-51); HEMOGLOBIN 11.5 g/dL (13.5-17.5); LYMPHOCYTES # (AUTO) 1.2 /CMM (0.8-4.8); LYMPHOCYTES % (AUTO) 14.4 % (20.0-44.0); MEAN CORPUSCULAR HGB CONC 33 g/dl (31.0-36.0); MEAN CORPUSCULAR VOLUME 88 fL (80-96); MONOCYTES # (AUTO) 0.6 /CMM (0.1-1.30); MONOCYTES % (AUTO) 7.4 % (2.0-12.0); NEUTROPHILS # (AUTO) 6.2 /CMM (1.8-8.9); NEUTROPHILS % (AUTO) 75.4 % (43.0-81.0); PLATELET COUNT (AUTO) 301 /CMM (150-450); RED BLOOD CELL COUNT(AUTO) 3.92 MIL/uL (4.5-6.0); WHITE BLOOD COUNT (AUTO) 8.3 K/uL (4.3-11.0)
[2020-11-24 20:39] LABS: CALCIUM, SERUM 9.1 mg/dL (8.5-10.1); CARBON DIOXIDE 29 mmol/L (21-32); CHLORIDE 104 mmol/L (98-107); CREATININE 1.2 mg/dL (0.6-1.3); GLUCOSE 118 mg/dL (74-106); POTASSIUM 3.7 mmol/L (3.5-5.1); SODIUM SERUM 141 mmol/L (136-145); UREA NITROGEN, BLOOD 22 mg/dL (7-18)
[2020-11-24 20:44] LABS: ALANINE AMINOTRANSFERASE 46 U/L (12-78); ALBUMIN 3.5 g/dL (3.4-5.0); ALCOHOL, BLOOD < 3 mg/dL (0-0); ALKALINE PHOSPHATASE 85 U/L (46-116); ASPARTATE AMINOTRANSFERASE 30 U/L (15-37); BILIRUBIN,DIRECT 0.1 mg/dL (0.0-0.2); BILIRUBIN,TOTAL 0.3 mg/dL (0.2-1.0); TOTAL PROTEIN, SERUM 7.7 g/dL (6.4-8.2)
[2020-11-24 20:45] LABS: ACETAMINOPHEN < 2 ug/ml (10-30)
--- NOTE | 2020-11-24 22:10 | NUR ---
Facesheet and clinicals faxed to [facility].
--- NOTE | 2020-11-25 03:51 | NUR ---
Call from [facility]. Pt accepted to [facility] by Dr Naranjo. # for report [phone]
--- NOTE | 2020-11-25 03:56 | NUR ---
[facility] call the car called for transport. [phone]
--- NOTE | 2020-11-25 04:05 | NUR ---
[facility] ETA 0710-2022
--- NOTE | 2020-11-25 05:15 | NUR ---
ATTEMPTED TO GIVE REPORT TO [facility], NO ANSWER. WILL FOLLOW UP
--- NOTE | 2020-11-25 05:47 | NUR ---
REPORT GIVEN TO STANISLAW ORELLANA FROM [facility] FOR Y[facility]A
--- NOTE | 2020-11-25 07:12 | NUR ---
REPORT GIVEN TO [facility] FOR TRANSPORTATION [facility]
[2020-11-25 07:13] VITALS: BP 148/79
== END 2020-11-25 07:13 ==
LOC: ER 19:12
DX: R45.851 Suicidal ideations (principal); D64.9 Anemia, unspecified; F17.210 Nicotine dependence, cigarettes, uncomplicated; F20.0 Paranoid schizophrenia; M32.9 Systemic lupus erythematosus, unspecified; I10 Essential (primary) hypertension; Z79.899 Other long term (current) drug therapy; G89.29 Other chronic pain; M25.562 Pain in left knee; M25.561 Pain in right knee; Z20.822 Contact with and (suspected) exposure to COVID-19
CPT/HCPCS: 36415; 80048; 80076; 80299; 80307; 80320; 81001; 85025; 87426; 99285; C9803; G0480

== ENCOUNTER 2021-01-05 10:11 | Emergency (ER) | payer OTHER ==
[~2021-01-05] VITALS: Ht 170.2 cm; Wt 83.9 kg
--- NOTE | 2021-01-05 10:11 | NUR ---
PT BIB SELF C/O SI "I WANT TO CUT MY NECK" PT IS AAOX4, NOT IN RESPIRATORY DISTRESS, V/S STABLE, KEPT RESTED AND COMFORTABLE. SITTER AT BEDSIDE FOR 1 TO 1, WILL CONTINUE TO MONITOR.
--- NOTE | 2021-01-05 10:14 | NUR ---
PT SEEN AND EXAMINED BY .
--- NOTE | 2021-01-05 10:35 | NUR ---
URINAL GIVEN BUT UNABLE TO PROVIDE SPECIMEN THIS TIME.
--- NOTE | 2021-01-05 10:40 | NUR ---
ER PHLEB AT BEDSIDE FOR BLOOD DRAW.
[2021-01-05 10:47] LABS: BASOPHILS % (AUTO) 0.6 % (0.0-2.0); EOSINOPHILS % (AUTO) 1.7 % (0.0-6.0); HEMATOCRIT 35 % (39-51); HEMOGLOBIN 11.3 g/dL (13.5-17.5); LYMPHOCYTES % (AUTO) 15.4 % (20.0-44.0); MEAN CORPUSCULAR HGB CONC 33 g/dl (31.0-36.0); MEAN CORPUSCULAR VOLUME 88 fL (80-96); MONOCYTES # (AUTO) 0.7 /CMM (0.1-1.30); NEUTROPHILS # (AUTO) 4.5 /CMM (1.8-8.9); NEUTROPHILS % (AUTO) 71.3 % (43.0-81.0); PLATELET COUNT (AUTO) 283 /CMM (150-450); RED BLOOD CELL COUNT(AUTO) 3.91 MIL/uL (4.5-6.0); WHITE BLOOD COUNT (AUTO) 6.3 K/uL (4.3-11.0)
[2021-01-05 11:07] LABS: ALANINE AMINOTRANSFERASE 41 U/L (12-78); ALBUMIN 3.6 g/dL (3.4-5.0); ALCOHOL, BLOOD < 3 mg/dL (0-0); ALKALINE PHOSPHATASE 72 U/L (46-116); ASPARTATE AMINOTRANSFERASE 37 U/L (15-37); BILIRUBIN,DIRECT 0.1 mg/dL (0.0-0.2); BILIRUBIN,TOTAL 0.4 mg/dL (0.2-1.0); CALCIUM, SERUM 8.9 mg/dL (8.5-10.1); CARBON DIOXIDE 30 mmol/L (21-32); CHLORIDE 102 mmol/L (98-107); CREATININE 1.2 mg/dL (0.6-1.3); GLUCOSE 91 mg/dL (74-106); POTASSIUM 3.6 mmol/L (3.5-5.1); SODIUM SERUM 138 mmol/L (136-145); TOTAL PROTEIN, SERUM 8.4 g/dL (6.4-8.2); UREA NITROGEN, BLOOD 22 mg/dL (7-18)
[2021-01-05 11:08] LABS: ACETAMINOPHEN < 10 ug/ml (10-30)
--- NOTE | 2021-01-05 11:19 | NUR ---
SW AT BEDSIDE FOR EVAL.
--- NOTE | 2021-01-05 13:22 | NUR ---
URINE SPECIMEN COLLECTED AND SENT TO LAB.
[2021-01-05 13:41] LABS: BILIRUBIN,URINE Negative (NEGATIVE); COLOR,URINE YELLOW (YELLOW); LEUKOCYTE ESTERASE ,URINE Negative (NEGATIVE); NITRITE, URINE Negative (NEGATIVE); PH,URINE 6.5 (5.0-8.0); PROTEIN,URINE Trace mg/dl (NEGATIVE); UGLUCOSE Negative (NEGATIVE)
[2021-01-05 13:52] LABS: BACTERIA,URINE Few /HPF (None Seen); RBC,URINE 0-2 /HPF (0-2); SQUAMOUS EPITHELIAL CELL,UR 0-2 /HPF (None Seen)
--- NOTE | 2021-01-05 16:07 | NUR ---
"Social Service Consult: conference services coordinator consult requested to assess the patient for current suicidal ideations and discuss options for discharge. Patient is a 60-year-old, male. SW met with the patient at his hospital bed in the emergency department. Patient is alert and oriented x4. Patient is disheveled. Patient came to the emergency department on 01/05/2021 due to suicidal ideations. Patient is currently homeless. Per RN note, patient stated I want to cut my neck. Per toxicology report, patient is positive for Amphetamine and Cocaine. Patient stated that he has Schizophrenia and is not currently taking any psychiatric medication. Patient stated he is currently experiencing auditory and visual hallucinations. Patient stated is he currently experiencing suicidal ideations and has a plan to cut himself with a razor. SW offered homeless resources to the patient and asked if he is familiar with the resources. Patient accepted the resources. PLAN: LESLIE consulted with Dr. Shetty and it was agreed that the patient requires a crisis evaluation. LESLIE contacted night time babysitter, Ashley Zaman, [facility] [phone] to arrange an evaluation. [facility]: Felton Galt [place] Provider: [employer] [place] Address: [address] [place], [place] [address] [facility] Center[facility] [place], [address] # of Beds: 47 Population Served: [facility] 6 | [facility] Sherice Gutierrez [place] Provider: [facility] Address: [address], [facility] # of Beds: 66 Population Served: [facility] [employer] [place] Provider: First to Serve Address: [address] [facility], [facility] # of Beds: 56 Population Served: [facility] [place] Provider: SS/[facility] Address: [address] [facility], [address] # of Beds: 49 Population Served: [facility] 8 | [facility] Provider: First to Serve Address: [address] [facility], [address] # of Beds: 37 Population Served: [facility] Hygiene: [facility]: [address] [place] ; [facility] [address] [facility] [place] ; [facility] [address], [place] . Food Resources: [employer] [employer] [facility] at [facility]- [address] [facility]. [place]; Meet Each Need with Dignity ([facility]) [address] [facility] [place]; [facility] [address] [facility]; [facility] 85 [facility]. Mental Health resources provided: [facility] [address] [place], [place] [id number] ; [facility] [place] [employer] [address] [facility] [address], [place], [place] [id number] ; [facility] [address], [place] [phone] ; [facility] [address] [place], [place] [id number] Healthcare Clinics: [facility] [address] [facility], [address] [place]. [place] ; [facility] [address] [facility] [address] [place] [address]; [facility] [address] [facility] [place] [address] [phone]"
[2021-01-05] MEDS ORDERED: OLANZAPINE 10 MG VIAL IM ONE ×2 (17:30→22:40)
--- NOTE | 2021-01-05 19:58 | NUR ---
Pt accepted to [facility] by Dr Rivas. Unit 2. # for report
--- NOTE | 2021-01-05 21:01 | NUR ---
[facility] called for transport. Trip# [id number]
--- NOTE | 2021-01-05 22:28 | NUR ---
[facility] 20 MINUTES
--- NOTE | 2021-01-05 22:50 | NUR ---
REPORT GIVEN TO STANISLAW VEGA FROM [facility] FOR [facility]
[2021-01-05 22:54] VITALS: BP 151/88
--- NOTE | 2021-01-05 22:57 | NUR ---
[facility] AT BEDSIDE FOR TRANSPORT TO [facility].
== END 2021-01-05 23:00 ==
LOC: ER 10:25
DX: R45.851 Suicidal ideations (principal); F32.9 Major depressive disorder, single episode, unspecified; F17.210 Nicotine dependence, cigarettes, uncomplicated; M32.9 Systemic lupus erythematosus, unspecified; F20.0 Paranoid schizophrenia; I10 Essential (primary) hypertension; G89.29 Other chronic pain; M25.562 Pain in left knee; M25.561 Pain in right knee; Z91.14 Patient's other noncompliance with medication regimen; Z20.822 Contact with and (suspected) exposure to COVID-19
CPT/HCPCS: 36415; 80048; 80076; 80299; 80307; 80320; 81001; 85025; 87426; 96372; 99285; C9803; J3490; G0480

== ENCOUNTER 2021-03-10 23:53 | Emergency (ER) | payer OTHER ==
[~2021-03-10] VITALS: Ht 167.6 cm; Wt 63.5 kg
--- NOTE | 2021-03-11 00:29 | NUR ---
CALLED PATIENT, NOT IN WAITING ROOM
--- NOTE | 2021-03-11 00:45 | NUR ---
TO ER BED 11 VIA WHEELCHAIR C/O SI WITH PLAN TO RUN INTO TRAFFIC. PT DENIES HI. REQUESTING VOLUNTARY ADMISSION TO [facility]. PT AAOX4 NO ACUTE DISTRESS NOTED, RESP EVEN AND UNLABORED. PT CALM AND COOPERATIVE AT AT THIS TIME. PLACE PT ON HOSPITAL GOWN, ALL BELONGINGS REMOVED AND PLACED IN A LOCKED HOSPITAL LOCKER. 1:1 SITTER AT BEDSIDE FOR PT SAFETY. PENDING ER MD OLIVERA.
--- NOTE | 2021-03-11 00:50 | NUR ---
BLOOD DRAWN BY ARMOR OFFICER.
[2021-03-11 01:05] LABS: BASOPHILS % (AUTO) 0.3 % (0.0-2.0); EOSINOPHILS % (AUTO) 0.8 % (0.0-6.0); HEMATOCRIT 27 % (39-51); HEMOGLOBIN 8.9 g/dL (13.5-17.5); LYMPHOCYTES # (AUTO) 0.9 /CMM (0.8-4.8); LYMPHOCYTES % (AUTO) 11.1 % (20.0-44.0); MEAN CORPUSCULAR HGB CONC 33 g/dl (31.0-36.0); MEAN CORPUSCULAR VOLUME 85 fL (80-96); MONOCYTES # (AUTO) 0.8 /CMM (0.1-1.30); MONOCYTES % (AUTO) 10.5 % (2.0-12.0); NEUTROPHILS # (AUTO) 6.2 /CMM (1.8-8.9); NEUTROPHILS % (AUTO) 77.3 % (43.0-81.0); PLATELET COUNT (AUTO) 481 /CMM (150-450); RED BLOOD CELL COUNT(AUTO) 3.21 MIL/uL (4.5-6.0)
[2021-03-11 01:13] LABS: CALCIUM, SERUM 9.4 mg/dL (8.5-10.1); CARBON DIOXIDE 29 mmol/L (21-32); CHLORIDE 101 mmol/L (98-107); CREATININE 1.2 mg/dL (0.6-1.3); GLUCOSE 93 mg/dL (74-106); POTASSIUM 3.9 mmol/L (3.5-5.1); SODIUM SERUM 137 mmol/L (136-145); UREA NITROGEN, BLOOD 19 mg/dL (7-18)
[2021-03-11 01:19] LABS: ALANINE AMINOTRANSFERASE 23 U/L (12-78); ALBUMIN 3.2 g/dL (3.4-5.0); ALCOHOL, BLOOD < 3 mg/dL (0-0); ALKALINE PHOSPHATASE 97 U/L (46-116); ASPARTATE AMINOTRANSFERASE 35 U/L (15-37); BILIRUBIN,DIRECT 0.1 mg/dL (0.0-0.2); BILIRUBIN,TOTAL 0.3 mg/dL (0.2-1.0); TOTAL PROTEIN, SERUM 8.8 g/dL (6.4-8.2)
[2021-03-11 01:20] LABS: ACETAMINOPHEN 0 ug/ml (10-30)
--- NOTE | 2021-03-11 03:08 | NUR ---
PT ASLEEP, NO ACUTE DISTRESS NOTED, RESP EVEN AND UNLABORED. CALL LIGHT WIHTIN REACH. WILL CONTINUE TO MONITOR PT. 1:1 SITTER AT BEDSIDE FOR PT SAFETY.
--- NOTE | 2021-03-11 03:23 | NUR ---
patient's urine collected and sent to the lab.
[2021-03-11 03:30] LABS: BILIRUBIN,URINE Negative (NEGATIVE); COLOR,URINE YELLOW (YELLOW); LEUKOCYTE ESTERASE ,URINE Negative (NEGATIVE); NITRITE, URINE Negative (NEGATIVE); PROTEIN,URINE 30 mg/dl (NEGATIVE); UGLUCOSE Negative (NEGATIVE); UROBILINOGEN,URINE 0.2 EU/dL (0.2)
--- NOTE | 2021-03-11 04:39 | NUR ---
CLINICAL AND FACESHEET FAXED TO [facility] FOR VOLUNTARY PSYCH ADMISSION.
--- NOTE | 2021-03-11 09:51 | NUR ---
Biostatistician Consultation: Biostatistician consultation requested for SI and homelessness. Patient is a 60 year old male who came to the ED for SI with plan to run into traffic. This SATELLITE DISH INSTALLER met with the patient bedside, in the ED. Patient is an male, awake, alert, oriented, receptive to speaking with this SATELLITE DISH INSTALLER. Patient states he has been living at a alf for the past 9 months, [facility], located at [address] [place] [address]. Patient stated that he had knee surgery last month, at [facility], and therefore is currently using a wheelchair for mobility. Patient stated that prior to the knee surgery, he was ambulatory with a cane. Patient expressed being content with living at the [facility] alf, but currently feels he needs psychiatric hospitalization for SI and medication management. Patient stated he has thoughts of wanting to push himself into traffic while sitting in his wheelchair. Patient reported dx of Paranoid Schizophrenia and having a hx of auditory and visual hallucinations, although denied any hallucinations at this time. Patient states he takes Seroquel. Patient reported hx of multiple psychiatric hospitalizations, stating "I've been to them all". Patient reports hx of polysubstance use, stating "I've used drugs all my life, I've used them all". Patient reported current use of crystal meth and "spice" (marijuana), stating that he used them last night. Patient denied use of alcohol, but stated he smokes 1/2 pack of cigarettes a day. Per patient's toxicology report, patient tested positive to cocaine, amphetamines, and marijuana. This SATELLITE DISH INSTALLER offered patient homeless community resources, and patient was receptive to these resources. Discharge plans discussed, and patient stated he is in agreement with voluntary psychiatric hospitalization. Patient denies HI. PLAN: This SATELLITE DISH INSTALLER to fax patient's clinicals to [facility] for possible voluntary admission to [facility]. This SATELLITE DISH INSTALLER to provide patient with homeless community resource packet.
--- NOTE | 2021-03-11 10:10 | NUR ---
This ASPHALT DISTRIBUTOR OPERATOR faxed ED summary report, ED physician's report, toxicology report, COVID test results, and patient's facesheet to Johnny, Cinder Crusher Operator at [facility], fax # [phone]. Pending review for admission.
--- NOTE | 2021-03-11 10:53 | NUR ---
RECEIVED A CALL FROM [facility], PATIENT IS ACCEPTED AT [facility] ROOM WILL BE AVAILABLE AFTER 12PM. UNIT [address] GONSALVES PHONE # FOR REPORT [phone] EXT [phone]
--- NOTE | 2021-03-11 11:03 | NUR ---
REPORT GIVEN TO NURSE PRICE FROM [facility].
--- NOTE | 2021-03-11 11:09 | NUR ---
"Transplant Worker met with the patient and provided him with the homeless resource packet. Patient signed the homeless patient waiver, and the signed waiver was filed in the patient's ED chart. Substance Abuse resources provided included: [facility] Substance Abuse Self-Helpline ([facility]) ; [facility] [address] [facility]. [place] [id number] ; [facility] [place] [address] [facility] [address] ; [facility] [address] [facility]. [place] [id number] ; [facility] [address] [facility] [id number] ; [facility] 4940 [facility] [phone] ; [facility] 902 [facility] [id number] ; [facility] Substance Abuse Helpline([facility])-[facility] ; [facility] ; [facility] [place]; [facility] [place]; [facility] Vipin [facility]; [facility] [place]; [place] [facility] [place]; [facility] [place]; [facility] [place]; Alcoholics Anonymous -SFV; Tl-Lokq-Hmvnbmx ; Marijuana Anonymous -SFV; Narcotics Anonymous www.na.org; Year-round shelters: [place] [address] [place] [address] ; [facility] [place] [address] [place] [address]; [place] [facility] [id number] [place]. [facility] [address] Winter Shelters: Zaidpam Astorgashruti Perez Provider: Andrew of [place] Address: [address], [address] # of Beds: 47 Population Served: [facility] 6 | [facility] Sherice Gutierrez [place] Provider: Home at Last Address: [address], [address] # of Beds: 66 Population Served: [facility] [place] Provider: [facility] Serve Address: [address] [facility], [address] # of Beds: 56 Population Served: [facility] Marty [place] Provider: /Ms. [facility] Address: [address] [facility], [address] # of Beds: 49 Population Served: [facility] 8 | [facility] Provider: First to Serve Address: [address] [facility], [address] # of Beds: 37 Population Served: [facility] Hygiene: [facility]: [address] Tu violet [place] ; [place] [facility] [address] [facility] ; [facility] 0363 [facility] . Food Resources: [place] [facility] at [facility]- 5700 [facility]; Meet Each Need with Dignity ([facility]) [address] [facility] [place]; [facility] 4291 [facility]; [facility] 6421 [facility] [place]. Mental Health resources provided: [facility] [address] [place] [address] ; [facility] [place] [address] [facility] [address], [place] [address] ; [facility] [address] [place] [address] ; [facility] [place], [place] [id number] Healthcare Clinics: [facility] [address] [facility], [address] [place]. [place] ; [facility] [address] [facility] [address] [place] [address]; [facility] [address] [facility] [place] [phone]) [phone] Counseling--Outpatient [facility] [address] [facility], [place] [address] (Specializes in in-depth psychotherapy for emotional distress: anxiety, depression, interpersonal conflicts, life transitions, childhood abuse) [facility] [address] [place] [address] (Assist with solving problem marital difficulties, separation & divorce, aging parents, & grief, chronic & terminal illness) [facility] [address] [place] [address] (Deal with loss & grief, anxiety, marital difficulties) Homebound/Mental Health Services [address] [facility], [address] [place] [address] (Provide in-home mental services to people who are incapable of leaving their homes) Organization for Needs of the Elderly Senior Service/Resource Center [address] [place] [address] [facility] [address] [place] [address] PSYCHIATRIC OUTPATIENT SERVICES [facility] Partial Hospitalization and Intensive Outpatient Program (Managed Care and [place] Only)[address] [facility] [phone] [facility] Partial Hospitalization and Outpatient [id number] [facility]. [address] [place], [place] [phone] [facility] Partial Hospitalization and Outpatient [id number]. [place], [place] [phone] VIPIN GU[facility] [id number] [place], [place] [phone] [facility] Vipin Gillespie Partial Hospitalization and Outpatient [id number] [facility] Vipin Gillespie, [phone] "
--- NOTE | 2021-03-11 11:10 | NUR ---
This HOUSEKEEPING DIRECTOR received confirmation from Johnny at [facility] that patient's clinicals were received, and in review.
[2021-03-11 14:00] VITALS: BP 126/75
--- NOTE | 2021-03-11 14:09 | NUR ---
CALLED [facility] FOR TRANSPORT TO [facility]. ETA 30-45 MINUTES.
--- NOTE | 2021-03-11 14:42 | NUR ---
REPORT GIVEN TO [facility] [address] FOR YINKA
== END 2021-03-11 14:50 ==
LOC: ER 23:53
DX: R45.851 Suicidal ideations (principal); F19.10 Other psychoactive substance abuse, uncomplicated; Z20.822 Contact with and (suspected) exposure to COVID-19; F20.0 Paranoid schizophrenia; I10 Essential (primary) hypertension; G89.29 Other chronic pain; M25.562 Pain in left knee; M25.561 Pain in right knee; M32.9 Systemic lupus erythematosus, unspecified; F17.210 Nicotine dependence, cigarettes, uncomplicated; F14.10 Cocaine abuse, uncomplicated; Z79.899 Other long term (current) drug therapy
CPT/HCPCS: 36415; 80048; 80076; 80143; 80307; 80320; 81003; 85025; 87426; 99285; C9803; G0480

== ENCOUNTER 2021-11-14 08:19 | Emergency (ER) | payer OTHER ==
[~2021-11-14] VITALS: Ht 167.6 cm; Wt 81.6 kg
--- NOTE | 2021-11-14 08:19 | NUR ---
PT BIB SELF C/O SUICIDAL IDEATION NO SPECIFIC PLAN. REQUESTING VOLUNTARY PSYCH ADMISSION TO [facility]. PT IS AAOX4, NOT IN RESPIRATORY DISTRESS, V/S STABLE, KEPT RESTED AND COMFORTABLE. WILL CONTINUE TO MONITOR.
--- NOTE | 2021-11-14 08:42 | NUR ---
SEEN AND EXAMINED BY .
--- NOTE | 2021-11-14 08:49 | NUR ---
COVID SPECIMEN OBTAINED AND SENT TO LAB.
--- NOTE | 2021-11-14 08:53 | NUR ---
URINE SPECIMEN COLLECTED AND SENT TO LAB.
[2021-11-14 09:20] LABS: BILIRUBIN,URINE NEGATIVE (NEGATIVE); COLOR,URINE YELLOW (YELLOW); LEUKOCYTE ESTERASE ,URINE NEGATIVE (NEGATIVE); NITRITE, URINE NEGATIVE (NEGATIVE); PROTEIN,URINE NEGATIVE (NEGATIVE); UGLUCOSE NEGATIVE (NEGATIVE)
[2021-11-14 09:25] LABS: BACTERIA,URINE None seen /HPF (None Seen); RBC,URINE NONE SEEN /HPF (0-2); SQUAMOUS EPITHELIAL CELL,UR Few /HPF (None Seen); WBC,URINE 0-2 /HPF (0-3)
[2021-11-14 09:52] LABS: BASOPHILS % (AUTO) 0.3 % (0.0-2.0); EOSINOPHILS % (AUTO) 3.7 % (0.0-6.0); HEMATOCRIT 36 % (39-51); LYMPHOCYTES % (AUTO) 22.5 % (20.0-44.0); MEAN CORPUSCULAR HGB CONC 33 g/dl (31.0-36.0); MEAN CORPUSCULAR VOLUME 88 fL (80-96); MONOCYTES # (AUTO) 0.6 K/uL (0.1-1.30); MONOCYTES % (AUTO) 13.3 % (2.0-12.0); NEUTROPHILS # (AUTO) 2.8 K/uL (1.8-8.9); NEUTROPHILS % (AUTO) 60.2 % (43.0-81.0); PLATELET COUNT (AUTO) 311 K/uL (150-450); RED BLOOD CELL COUNT(AUTO) 4.12 MIL/uL (4.5-6.0); WHITE BLOOD COUNT (AUTO) 4.7 K/uL (4.3-11.0)
[2021-11-14 10:56] LABS: ALANINE AMINOTRANSFERASE 47 U/L (12-78); ALBUMIN 3.6 g/dL (3.4-5.0); ALKALINE PHOSPHATASE 81 U/L (46-116); ASPARTATE AMINOTRANSFERASE 33 U/L (15-37); BILIRUBIN,DIRECT 0.1 mg/dL (0.0-0.2); BILIRUBIN,TOTAL 0.3 mg/dL (0.2-1.0); CALCIUM, SERUM 8.9 mg/dL (8.5-10.1); CARBON DIOXIDE 31 mmol/L (21-32); CHLORIDE 102 mmol/L (98-107); GLUCOSE 91 mg/dL (74-106); POTASSIUM 3.6 mmol/L (3.5-5.1); SODIUM SERUM 139 mmol/L (136-145); TOTAL PROTEIN, SERUM 8.7 g/dL (6.4-8.2); UREA NITROGEN, BLOOD 21 mg/dL (7-18)
--- NOTE | 2021-11-14 10:58 | NUR ---
FA[facility]ED CLINICALS TO [facility]
[2021-11-14 11:08] LABS: ACETAMINOPHEN 0 ug/ml (10-30)
[2021-11-14 11:09] LABS: ALCOHOL, BLOOD < 3 mg/dL (0-0)
--- NOTE | 2021-11-14 13:00 | NUR ---
Lunch Served. Tolerated well. Ate 100%
--- NOTE | 2021-11-14 17:15 | NUR ---
CALLED [facility] AND WAS NOTIFIED THAT WE ARE STILL WAITING FOR A BED TO OPEN IN [place]
--- NOTE | 2021-11-15 07:00 | NUR ---
PT SLEEPING AT THIS TIME. VSS. PT IN NO ACUTE DISTRESS AT THIS TIME
--- NOTE | 2021-11-15 08:30 | NUR ---
BREAKFAST PROVIDED, TOLERATED WELL
--- NOTE | 2021-11-15 10:00 | NUR ---
FAXED COVID RESULT TO [facility].
--- NOTE | 2021-11-15 11:59 | NUR ---
CALLED [facility] CURRENTLY UNDER STAFFED WILL CALL US WHEN BED AVAILABLE PER ART.
[2021-11-15] MEDS ORDERED: FAMOTIDINE (20 MG) 20 MG TABLET PO ONE (17:30)
[2021-11-15] MEDS ORDERED: FAMOTIDINE (20 MG) 20 MG TABLET ONE (17:53)
--- NOTE | 2021-11-16 01:04 | NUR ---
PT SLEEPING IN BED. ADLS DONE ALL NEEDS MET AT THIS TIME. SAFETY 1:[address]
--- NOTE | 2021-11-16 06:22 | NUR ---
ADLS DONE. PT AMBULATORY WITH WALKER TO RESTROOM. ALL NEEDS MET AT THIS TIME
--- NOTE | 2021-11-16 07:32 | NUR ---
ASSESSED PT ON BED ASLEEP EASILY AROUSABLE, NOT IN RESPIRATORY DISTRESS, V/S STABLE, KEPT RESTED AND COMFORTABLE. WILL CONTINUE TO MONITOR.
--- NOTE | 2021-11-16 09:39 | NUR ---
CALLED [facility] AND ASKED ABOUT PT ACCEPTANCE STATUS. WAS NOTIFIED THAT THEY ARE STILL MISSING LABS FOR PT. PT'S LABS WERE FAXED. NOW AWAITING FOR A CALL BACK FOR PT ACCEPTANCE.
--- NOTE | 2021-11-16 11:19 | NUR ---
REQUESTED BY COMPLIANCE REVIEW SPECIALIST TO SEND MEDICAL CLEARANCE NOTE TO [facility]. CLINICALS HAVE BEEN FAXED
--- NOTE | 2021-11-16 19:58 | NUR ---
called [facility] and spoke to Art for follow up. he will try to expedite the transfer
--- NOTE | 2021-11-16 20:38 | NUR ---
PATIENT NO LONGER STATES HE IS SUICIDAL MD WRIGHT NOTIFIED.
--- NOTE | 2021-11-16 20:41 | NUR ---
PATIENT WOULD LIKE TO LEAVE AGAINST MEDICAL ADVICE. AMA SIGNED PATIENTS BELONGINGS GIVEN BACK. VERIFIED AGAIN PATIENT STATES, "I AM NO LONGER SUICIDAL". MD WRIGHT AWARE
[2021-11-16 20:46] VITALS: BP 126/80
== END 2021-11-16 20:47 | disposition left against medical advice (07) ==
LOC: ER 08:20
DX: R45.851 Suicidal ideations (principal); F32.A Depression, unspecified; F17.210 Nicotine dependence, cigarettes, uncomplicated; F20.0 Paranoid schizophrenia; Z20.822 Contact with and (suspected) exposure to COVID-19; F19.10 Other psychoactive substance abuse, uncomplicated; I10 Essential (primary) hypertension; Z53.29 Procedure and treatment not carried out because of patient's decision for other reasons; F14.10 Cocaine abuse, uncomplicated
CPT/HCPCS: 36415; 80048; 80076; 80143; 80307; 80320; 81001; 85025; 87426; 99285; C9803; G0480